=== PATIENT | female | born 1955 | race Caucasian/White ===

== ENCOUNTER 2019-01-15 13:55 | Inpatient (IN) | payer OTHER, BC ==
[2019-01-16] MEDS ORDERED: PHENYTOIN NA EXTENDED 100 MG CAPSULE (FP) PO ONE ×2 (21:44→23:00)
[2019-01-16] MEDS ORDERED: ACETAMINOPHEN 500 MG TABLET (FP) PO PRN (21:44)
--- NOTE | 2019-01-16 21:48 | HP ---
Admitting History and Physical - Primary Care Physician PCP: Davide Stovall - Admission History of Present Illness: 63 years old woman admitted for VEEG monitor for elective admission due to AMS PMH CAD CVA Right Hemparesis High Chol HTN Insomnia - Past Medical History [employer]: Yes: Seizure Cardiovascular: Yes: HTN, Hyperlipdemia, Other (ASHD) Pulmonary: Yes: Sleep Apnea. No: Pulmonary Embolus Gastrointestinal: Yes: GERD, Other (gastroparesis, fatty liver ds, Constipation) Endocrine: Yes: Diabetes Mellitus, Hypothyroidism, Other (obesity) - Smoking History Smoking history: Never smoked Have you smoked in the past 12 months: No - Alcohol/Substance Use Hx Alcohol Use: No - Social History History of Recent Travel: No Home Medications - Allergies Allergies/Adverse Reactions: Allergies Allergy/AdvReac Type Severity Reaction Status Date / Time No Known Drug Allergies Allergy Verified 02/26/14 14:18 - Home Medications Home Medications: Ambulatory Orders Isosorbide Mononitrate [Imdur] 60 mg PO BID 02/08/12 Levothyroxine [Synthroid -] 150 mcg PO DAILY 02/08/12 Metoprolol Succinate [Toprol XL -] 200 mg PO BID 02/08/12 Zonisamide [Zonegran] 200 mg PO BID 02/08/12 Aspirin/Dipyridamole [Aggrenox -] 1 combo PO BID #0 capsule 10/09/13 Diltiazem HCl [Cardizem] 60 mg PO Q6H #0 tablet 10/09/13 Magnesium Oxide [Mag-Ox -] 400 mg PO BID #30 tablet 10/09/13 Atorvastatin Ca [Lipitor] 80 mg PO HS 02/26/14 Hydralazine HCl 25 mg PO TID 02/26/14 Oxcarbazepine 300 mg PO BID 02/26/14 Oxycodone HCl/Acetaminophen [Percocet 5-325 mg Tablet] 1 combo PO Q6H PRN #14 tablet 02/26/14 Vitamin B Comp W-C [Nephro-Jon -] 1 ea NR DAILY 02/27/14 Oxycodone HCl/Acetaminophen [Percocet 5-325 mg Tablet] 1 combo PO Q6H PRN #30 tablet 02/28/14 Family Disease History - Family Disease History Family Disease History: Heart Disease: Grandparent, Father, Mother Review of Systems - Review of Systems Constitutional: reports: No Symptoms Eyes: reports: No Symptoms Physical Examination Neurological: Yes: Alert, Oriented, Babinski positive, Cran Nerves II-XII Intact ...Motor Strength: RUE (0), RLE (1) Problem List - Problems (1) Seizure Assessment/Plan: 1. Neuro checks 2 .Seziure precautions 3. VEEG monitor 4. Ativan prn 5. Continue Zonismide 6. Contribe [facility] Code(s): R56.9 - UNSPECIFIED CONVULSIONS
[2019-01-16] MEDS ORDERED: ACETAMINOPHEN 325 MG TABLET (FP) PO PRN (21:58)
[2019-01-16] MEDS ORDERED: LORazepam 2 MG/ML SDV VIAL IVPUSH PRN (22:02)
[2019-01-16] MEDS: SENNOSIDES 8.6MG TABLET (FP) PO SCH (22:42)
[2019-01-16] MEDS: hydrALAZINE HCL 25 MG TABLET (FP) PO SCH (22:42)
[2019-01-16] MEDS: ISOSORBIDE MONONITRATE 60 MG TAB.SR.24H (FP) PO SCH (22:42)
[2019-01-16] MEDS: ATORVASTATIN CA 10 MG TABLET (FP) PO SCH (22:42)
[2019-01-16] MEDS: ZONISAMIDE 100 MG CAPSULE PO SCH (22:43)
[2019-01-16] MEDS: ASPIRIN/DIPYRIDAMOLE 25 MG/200 MG CAPSULE (FP) PO SCH (22:43)
[2019-01-16] MEDS: OXcarbazepine 300 MG TABLET (UD) PO SCH (22:43)
[2019-01-16 22:46] LABS: HEMATOCRIT 41.7 % (32.4-45.2); HEMOGLOBIN 13.9 GM/dL (10.7-15.3); MCH 28.5 pg (25.7-33.7); MCHC 33.3 g/dl (32.0-36.0); MEAN CELL VOLUME 85.6 fl (80-96); PLATELET COUNT 136 K/MM3 (134-434); RBC 4.87 M/mm3 (3.60-5.2); RDW 13.2 % (11.6-15.6); WHITE BLOOD COUNT 7.5 K/mm3 (4.0-10.0)
[2019-01-16] MEDS: dilTIAZem HCL 60 MG TABLET (FP) PO SCH (23:17)
[2019-01-16 23:32] LABS: ALBUMIN 3.8 g/dl (3.4-5.0); BILIRUBIN,DIRECT 0.1 mg/dL (0.0-0.2); BILIRUBIN,TOTAL 0.4 mg/dL (0.2-1); CALCIUM 8.3 mg/dL (8.5-10.1); CREATININE 0.7 mg/dL (0.55-1.3); POTASSIUM 3.6 mmol/L (3.5-5.1); TOT PROT 6.6 g/dl (6.4-8.2)
[2019-01-17 02:21] VITALS: BMI 31.6
[2019-01-17] MEDS: hydrALAZINE HCL 25 MG TABLET (FP) PO SCH ×3 (06:36→22:11)
[2019-01-17] MEDS: dilTIAZem HCL 60 MG TABLET (FP) PO SCH ×4 (06:36→23:45)
[2019-01-17] MEDS: LEVOTHYROXINE NA 100 MCG TABLET (FP) PO SCH (06:36)
[2019-01-17] MEDS ORDERED: PHENYTOIN NA EXTENDED 100 MG CAPSULE (FP) PO SCH (10:00)
[2019-01-17] MEDS ORDERED: PT OWN MED DRAWER 7, Y5N ONE ×2 (12:10→22:03)
[2019-01-17] MEDS: MULTIVITAMINS (DAILY MVI) TABLET (FP) PO SCH (12:13)
[2019-01-17] MEDS: ASPIRIN/DIPYRIDAMOLE 25 MG/200 MG CAPSULE (FP) PO SCH ×2 (12:13→22:10)
[2019-01-17] MEDS: ISOSORBIDE MONONITRATE 60 MG TAB.SR.24H (FP) PO SCH ×2 (12:13→22:11)
[2019-01-17] MEDS: ASCORBIC ACID 500 MG TABLET (FP) PO SCH (12:13)
[2019-01-17] MEDS: OXcarbazepine 300 MG TABLET (UD) PO SCH ×2 (12:14→22:10)
[2019-01-17] MEDS: ZONISAMIDE 100 MG CAPSULE PO SCH ×2 (12:15→22:10)
--- NOTE | 2019-01-17 12:53 | EKG ---
Test Reason : Blood Pressure : / mmHG Vent. Rate : 061 BPM Atrial Rate : 061 BPM P-R Int : 190 ms QRS Dur : 108 ms QT Int : 432 ms P-R-T Axes : 021 -28 012 degrees QTc Int : 434 ms NORMAL SINUS RHYTHM MINIMAL VOLTAGE CRITERIA FOR LVH, MAY BE NORMAL VARIANT CANNOT RULE OUT ANTERIOR INFARCT , AGE UNDETERMINED ABNORMAL ECG WHEN COMPARED WITH ECG OF 27-FEB-2014 09:01, MINIMAL CRITERIA FOR ANTERIOR INFARCT ARE NOW PRESENT Confirmed by LESTER BYRNES MD ([id number]) on 01/17/2019 12:53:36 PM Referred By: Confirmed By:LESTER BYRNES MD
--- NOTE | 2019-01-17 17:26 | PN ---
Progress Note, Physician History of Present Illness: events noted Push button not used Alert Awake No seziure - Current Medication List Current Medications: Active Medications Acetaminophen (Tylenol -) 500 mg PO Q6H PRN PRN Reason: PAIN OR FEVER Ascorbic Acid (Vitamin C -) 500 mg PO DAILY [facility] Last Admin: 01/17/19 12:13 Dose: 500 mg Atorvastatin Calcium (Lipitor -) 10 mg PO HS [facility] Last Admin: 01/16/19 22:42 Dose: 10 mg Diltiazem HCl (Cardizem -) 60 mg PO Q6HPO [facility] Last Admin: 01/17/19 12:13 Dose: 60 mg Dipyridamole/Aspirin (Aggrenox -) 1 combo PO BID [facility] Last Admin: 01/17/19 12:13 Dose: 1 combo Hydralazine HCl (Apresoline -) 25 mg PO TID [facility] Last Admin: 01/17/19 15:22 Dose: 25 mg Isosorbide Mononitrate (Imdur -) 60 mg PO BID [facility] Last Admin: 01/17/19 12:13 Dose: 60 mg Levothyroxine Sodium (Synthroid -) 100 mcg PO DAILY@0700 [facility] Last Admin: 01/17/19 06:36 Dose: 100 mcg Lorazepam (Ativan Injection -) 1 mg IVPUSH PRN PRN PRN Reason: SEIZURES Metoprolol Succinate (Toprol Xl -) 100 mg PO BID [facility] Last Admin: 01/17/19 12:13 Dose: 100 mg Multivitamins/Minerals/Vitamin C (Tab-A-Vit -) 1 tab PO DAILY [facility] Last Admin: 01/17/19 12:13 Dose: 1 tab Oxcarbazepine (Trileptal -) 300 mg PO BID [facility] Last Admin: 01/17/19 12:14 Dose: 300 mg Senna (Senna -) 2 tab PO HS [facility] Last Admin: 01/16/19 22:42 Dose: 2 tab Zonisamide (Zonegran -) 200 mg PO BID [facility] Last Admin: 01/17/19 12:15 Dose: 200 mg - Objective Vital Signs: Vital Signs Temperature 98.8 F 01/17/19 14:45 Pulse Rate 63 01/17/19 14:45 Respiratory Rate 18 01/17/19 14:45 Blood Pressure 135/75 01/17/19 14:45 O2 Sat by Pulse Oximetry (%) 98 01/16/19 20:00 Constitutional: Yes: Well Nourished Eyes: Yes: WNL Neurological: Yes: Alert, Oriented, Babinski positive, Dysarthria, Facial Droop Labs: CBC, BMP 01/16/19 22:35 01/16/19 22:35 Problem List - Problems (1) Seizure Assessment/Plan: VEEG sz precautions Fall precaution Continue ani Zonismide the same Code(s): R56.9 - UNSPECIFIED CONVULSIONS
[2019-01-17] MEDS: SENNOSIDES 8.6MG TABLET (FP) PO SCH (22:11)
[2019-01-17] MEDS: ATORVASTATIN CA 10 MG TABLET (FP) PO SCH (22:11)
[2019-01-18] MEDS: dilTIAZem HCL 60 MG TABLET (FP) PO SCH ×3 (06:02→18:04)
[2019-01-18] MEDS: LEVOTHYROXINE NA 100 MCG TABLET (FP) PO SCH (06:02)
[2019-01-18] MEDS: hydrALAZINE HCL 25 MG TABLET (FP) PO SCH ×3 (06:02→22:17)
[2019-01-18] MEDS: OXcarbazepine 300 MG TABLET (UD) PO SCH ×2 (10:38→22:18)
[2019-01-18] MEDS: ASPIRIN/DIPYRIDAMOLE 25 MG/200 MG CAPSULE (FP) PO SCH ×2 (10:41→22:17)
[2019-01-18] MEDS: ISOSORBIDE MONONITRATE 60 MG TAB.SR.24H (FP) PO SCH ×2 (10:41→22:18)
[2019-01-18] MEDS: MULTIVITAMINS (DAILY MVI) TABLET (FP) PO SCH (10:41)
[2019-01-18] MEDS: ZONISAMIDE 100 MG CAPSULE PO SCH ×2 (10:42→22:20)
[2019-01-18] MEDS: ASCORBIC ACID 500 MG TABLET (FP) PO SCH (10:42)
--- NOTE | 2019-01-18 12:17 | PN ---
Progress Note, Physician History of Present Illness: events noted Chart reviewed Alert awake oriented 3 normal attention span follow commands normally Feels better - Current Medication List Current Medications: Active Medications Acetaminophen (Tylenol -) 500 mg PO Q6H PRN PRN Reason: PAIN OR FEVER Ascorbic Acid (Vitamin C -) 500 mg PO DAILY [facility] Last Admin: 01/18/19 10:42 Dose: 500 mg Atorvastatin Calcium (Lipitor -) 10 mg PO HS [facility] Last Admin: 01/17/19 22:11 Dose: 10 mg Diltiazem HCl (Cardizem -) 60 mg PO Q6HPO [facility] Last Admin: 01/18/19 06:02 Dose: 60 mg Dipyridamole/Aspirin (Aggrenox -) 1 combo PO BID [facility] Last Admin: 01/18/19 10:41 Dose: 1 combo Hydralazine HCl (Apresoline -) 25 mg PO TID [facility] Last Admin: 01/18/19 06:02 Dose: 25 mg Isosorbide Mononitrate (Imdur -) 60 mg PO BID [facility] Last Admin: 01/18/19 10:41 Dose: 60 mg Levothyroxine Sodium (Synthroid -) 100 mcg PO DAILY@0700 [facility] Last Admin: 01/18/19 06:02 Dose: 100 mcg Lorazepam (Ativan Injection -) 1 mg IVPUSH PRN PRN PRN Reason: SEIZURES Metoprolol Succinate (Toprol Xl -) 100 mg PO BID [facility] Last Admin: 01/17/19 22:11 Dose: 100 mg Multivitamins/Minerals/Vitamin C (Tab-A-Vit -) 1 tab PO DAILY [facility] Last Admin: 01/18/19 10:41 Dose: 1 tab Oxcarbazepine (Trileptal -) 300 mg PO BID [facility] Last Admin: 01/18/19 10:38 Dose: 300 mg Senna (Senna -) 2 tab PO HS [facility] Last Admin: 01/17/19 22:11 Dose: 2 tab Zonisamide (Zonegran -) 200 mg PO BID [facility] Last Admin: 01/18/19 10:42 Dose: 200 mg - Objective Vital Signs: Vital Signs Temperature 97.9 F 01/18/19 10:46 Pulse Rate 58 L 01/18/19 10:46 Respiratory Rate 18 01/18/19 10:46 Blood Pressure 141/71 01/18/19 10:46 O2 Sat by Pulse Oximetry (%) 95 01/17/19 21:00 Constitutional: Yes: Well Nourished Eyes: Yes: WNL Neurological: Yes: Alert, Oriented, Babinski positive Labs: CBC, BMP 01/16/19 22:35 01/16/19 22:35 Problem List - Problems (1) Seizure Assessment/Plan: continue video EEG monitoring for another 24 hours. Continued antiseizure medication the same. 3. Ativan when necessary seizure. Code(s): R56.9 - UNSPECIFIED CONVULSIONS
[2019-01-18] MEDS ORDERED: PT OWN MED DRAWER 7, Y5N ONE (22:09)
[2019-01-18] MEDS: ATORVASTATIN CA 10 MG TABLET (FP) PO SCH (22:19)
[2019-01-18] MEDS: SENNOSIDES 8.6MG TABLET (FP) PO SCH (22:19)
[2019-01-19] MEDS: dilTIAZem HCL 60 MG TABLET (FP) PO SCH ×3 (00:32→15:18)
[2019-01-19] MEDS: hydrALAZINE HCL 25 MG TABLET (FP) PO SCH ×3 (06:05→21:05)
[2019-01-19] MEDS: LEVOTHYROXINE NA 100 MCG TABLET (FP) PO SCH (06:05)
[2019-01-19] MEDS ORDERED: PT OWN MED DRAWER 7, Y5N ONE ×2 (10:58→21:03)
[2019-01-19] MEDS: ISOSORBIDE MONONITRATE 60 MG TAB.SR.24H (FP) PO SCH ×2 (11:06→21:05)
[2019-01-19] MEDS: MULTIVITAMINS (DAILY MVI) TABLET (FP) PO SCH (11:06)
[2019-01-19] MEDS: ASCORBIC ACID 500 MG TABLET (FP) PO SCH (11:06)
[2019-01-19] MEDS: ASPIRIN/DIPYRIDAMOLE 25 MG/200 MG CAPSULE (FP) PO SCH ×2 (11:06→21:04)
[2019-01-19] MEDS: OXcarbazepine 300 MG TABLET (UD) PO SCH ×2 (11:06→21:04)
[2019-01-19] MEDS: ZONISAMIDE 100 MG CAPSULE PO SCH ×2 (11:07→21:06)
[2019-01-19] MEDS: ATORVASTATIN CA 10 MG TABLET (FP) PO SCH (21:05)
[2019-01-19] MEDS: SENNOSIDES 8.6MG TABLET (FP) PO SCH (21:06)
[2019-01-20] MEDS: dilTIAZem HCL 60 MG TABLET (FP) PO SCH ×2 (00:11→06:11)
[2019-01-20] MEDS: hydrALAZINE HCL 25 MG TABLET (FP) PO SCH (06:11)
[2019-01-20] MEDS: LEVOTHYROXINE NA 100 MCG TABLET (FP) PO SCH (06:11)
[2019-01-20 07:25] VITALS: BP 116/64; PULSE 98; TEMP 97.7
[2019-01-20] MEDS ORDERED: PT OWN MED DRAWER 7, Y5N ONE (09:06)
[2019-01-20] MEDS: ASPIRIN/DIPYRIDAMOLE 25 MG/200 MG CAPSULE (FP) PO SCH (09:14)
[2019-01-20] MEDS: ASCORBIC ACID 500 MG TABLET (FP) PO SCH (09:15)
[2019-01-20] MEDS: ISOSORBIDE MONONITRATE 60 MG TAB.SR.24H (FP) PO SCH (09:15)
[2019-01-20] MEDS: OXcarbazepine 300 MG TABLET (UD) PO SCH (09:15)
[2019-01-20] MEDS: MULTIVITAMINS (DAILY MVI) TABLET (FP) PO SCH (09:15)
[2019-01-20] MEDS: ZONISAMIDE 100 MG CAPSULE PO SCH (09:16)
== END 2019-01-20 13:06 | disposition home or self-care (01) | DRG 101 ==
LOC: J4S 01-16 19:00
PROVIDERS: ADMIT Psychiatry & Neurology Neurology; ATTEND Psychiatry & Neurology Neurology
DX: R56.9 Unspecified convulsions (principal); I69.351 Hemiplegia and hemiparesis following cerebral infarction affecting right dominant side; R41.82 Altered mental status, unspecified; I25.10 Atherosclerotic heart disease of native coronary artery without angina pectoris; E78.00 Pure hypercholesterolemia, unspecified; I10 Essential (primary) hypertension; G47.00 Insomnia, unspecified; K21.9 Gastro-esophageal reflux disease without esophagitis; E11.43 Type 2 diabetes mellitus with diabetic autonomic (poly)neuropathy; K31.84 Gastroparesis; K76.0 Fatty (change of) liver, not elsewhere classified; E03.9 Hypothyroidism, unspecified; E66.9 Obesity, unspecified; Z68.32 Body mass index [BMI] 32.0-32.9, adult; G47.30 Sleep apnea, unspecified
CPT/HCPCS: 36415; 80048; 80076; 85027; 93005; 93010; 95951

== ENCOUNTER 2025-02-06 17:14 | Emergency (ER) | payer OTHER, BC ==
[2025-02-06 18:09] VITALS: TEMP 97.3; BMI 24.4
[2025-02-06] MEDS ORDERED: ACETAMINOPHEN 325 MG TABLET (FP) ONE (18:28)
[2025-02-06] MEDS: ACETAMINOPHEN 650 MG/20.3 ML ORAL SOLUTION (CUPS) PO ONE (19:41)
[2025-02-06] MEDS: ACETAMINOPHEN 650 MG/20.3 ML ORAL SOLUTION (CUPS) GT ONE (19:41)
[2025-02-06 19:42] VITALS: RESP 18
[2025-02-06 23:04] VITALS: BP 135/56; PULSE 77
== END 2025-02-06 23:09 ==
LOC: JER 17:14
DX: M19.011 Primary osteoarthritis, right shoulder (principal); M25.511 Pain in right shoulder
CPT/HCPCS: 73030-TC-RT-FY; 73060-TC-RT-FY; 73200-TC-RT; 99284-25